=== PATIENT | female | born 2000 | race Caucasian/White ===

== ENCOUNTER 2022-12-16 14:18 | Emergency (ER) | payer BC ==
[~2022-12-16] VITALS: Ht 165.1 cm; Wt 124.7 kg
[2022-12-16] MEDS ORDERED: PROZAC40 M1 PO (14:53)
[2022-12-16 16:53] LABS: BASO % 0.1 % (0.0-1.0); EOS # 0.1 10*3/uL (0.0-0.4); EOS % 0.7 % (1.0-4.0); HEMATOCRIT 28.4 % (37.0-47.0); LYMPH % 29.7 % (27.0-41.0); MEAN CELL VOLUME 80.9 fl (81.0-99.0); MEAN CORPUSCULAR HGB 23.9 pg (27.0-31.0); MEAN CORPUSCULAR HGB CONC 29.6 g/dl (33.0-37.0); MEAN PLATELET VOLUME 9.6 fl (9.6-12.3); MONO # 0.4 10*3/uL (0.1-1.0); MONO % 5.5 % (3.0-9.0); NEUT # 4.3 10*3/uL (2.3-7.9); NEUT % 62.7 % (47.0-73.0); NUCLEATED RED BLOOD CELL 0.3 % (0.0-0.0); PLATELET COUNT AUTOMATED 356 10*3/uL (130-400); RED BLOOD COUNT 3.51 10*6/uL (4.10-5.10); RED CELL DISTRI WIDTH 21.2 % (0-14.5); WHITE BLOOD COUNT 6.9 10*3/uL (4.8-10.8)
[2022-12-16 17:15] LABS: ACT PARTIAL THROMBO TIME 24.5 SECONDS (20.0-32.1)
[2022-12-16 17:29] LABS: ALKALINE PHOSPHATASE 69 U/L (46-116); BUN 10 mg/dl (9-23); CHLORIDE 108 mmol/L (98-107); POTASSIUM 4.2 mmol/L (3.4-5.1); SGPT/ALT 30 U/L (5-49); TOTAL PROTEIN 6.9 gm/dL (6.0-8.0)
[2022-12-16 17:30] LABS: BETA-HCG, QUANT < 3.0 mIU/mL (3-10)
== END 2022-12-16 19:43 | disposition home or self-care (01) ==
LOC: ED 14:18
PROVIDERS: Nurse Practitioner Family
DX: D64.9 Anemia, unspecified (principal); N93.9 Abnormal uterine and vaginal bleeding, unspecified

== ENCOUNTER 2023-01-21 13:44 | Emergency (ER) | payer BC ==
[~2023-01-21] VITALS: Ht 165.1 cm; Wt 123.8 kg
[~2023-01-21 13:44] MED LIST: PROZAC40 M1 PO
[2023-01-21 16:27] LABS: BASO % 0.3 % (0.0-1.0); EOS % 0.6 % (1.0-4.0); HEMATOCRIT 30.9 % (37.0-47.0); LYMPH % 29.4 % (27.0-41.0); MEAN CELL VOLUME 76.7 fl (81.0-99.0); MEAN CORPUSCULAR HGB 22.8 pg (27.0-31.0); MEAN CORPUSCULAR HGB CONC 29.8 g/dl (33.0-37.0); MEAN PLATELET VOLUME 9.5 fl (9.6-12.3); MONO # 0.4 10*3/uL (0.1-1.0); MONO % 6.3 % (3.0-9.0); NEUT # 4.4 10*3/uL (2.3-7.9); PLATELET COUNT AUTOMATED 351 10*3/uL (130-400); RED BLOOD COUNT 4.03 10*6/uL (4.10-5.10); RED CELL DISTRI WIDTH 18.1 % (0-14.5)
[2023-01-21 16:48] LABS: ALKALINE PHOSPHATASE 85 U/L (46-116); BUN 7 mg/dl (9-23); CHLORIDE 107 mmol/L (98-107); POTASSIUM 3.9 mmol/L (3.4-5.1); SGPT/ALT 39 U/L (5-49)
== END 2023-01-21 17:24 | disposition home or self-care (01) ==
LOC: ED 13:44
PROVIDERS: Student in an Organized Health Care Education/Training Program
DX: D64.9 Anemia, unspecified (principal); R10.2 Pelvic and perineal pain; R53.83 Other fatigue; R42 Dizziness and giddiness; R06.02 Shortness of breath

== ENCOUNTER 2023-03-12 14:53 | Emergency (ER) | payer BC ==
[~2023-03-12] VITALS: Ht 165.1 cm; Wt 126.1 kg
[2023-03-12 15:48] LABS: BASO % 0.5 % (0.0-1.0); EOS # 0.1 10*3/uL (0.0-0.4); EOS % 1.1 % (1.0-4.0); HEMATOCRIT 30.2 % (37.0-47.0); LYMPH # 2.1 10*3/uL (1.3-4.4); LYMPH % 32.9 % (27.0-41.0); MEAN CELL VOLUME 72.2 fl (81.0-99.0); MEAN CORPUSCULAR HGB 20.1 pg (27.0-31.0); MEAN CORPUSCULAR HGB CONC 27.8 g/dl (33.0-37.0); MONO # 0.4 10*3/uL (0.1-1.0); MONO % 6.3 % (3.0-9.0); NEUT # 3.8 10*3/uL (2.3-7.9); NEUT % 58.6 % (47.0-73.0); PLATELET COUNT AUTOMATED 318 10*3/uL (130-400); RED BLOOD COUNT 4.18 10*6/uL (4.10-5.10); WHITE BLOOD COUNT 6.5 10*3/uL (4.8-10.8)
[2023-03-12 15:59] LABS: ACT PARTIAL THROMBO TIME 23.1 SECONDS (20.0-32.1)
[2023-03-12 16:19] LABS: ALKALINE PHOSPHATASE 76 U/L (46-116); BUN 10 mg/dl (9-23); CHLORIDE 106 mmol/L (98-107); POTASSIUM 4.2 mmol/L (3.4-5.1); SGPT/ALT 63 U/L (5-49); TOTAL PROTEIN 7.2 gm/dL (6.0-8.0)
[2023-03-12 16:20] LABS: B-hCG (QUALITATIVE) NEGATIVE (NEGATIVE)
== END 2023-03-12 18:09 | disposition home or self-care (01) ==
LOC: ED 14:53
PROVIDERS: Family Medicine
DX: D64.89 Other specified anemias (principal); D50.9 Iron deficiency anemia, unspecified; N92.0 Excessive and frequent menstruation with regular cycle; R10.2 Pelvic and perineal pain

== ENCOUNTER → 2023-05-04 | Outpatient (CLI) | payer BC | END | disposition home or self-care (01) | LOC: US 04-29 10:00 → LAB 14:22 → US 14:30 | PROVIDERS: ATTEND Nurse Practitioner Women's Health | DX: N80.03 Adenomyosis of the uterus (principal); N93.9 Abnormal uterine and vaginal bleeding, unspecified; R53.83 Other fatigue ==